=== PATIENT | male | born 2000 | race Hispanic/Latino ===

== ENCOUNTER 2022-01-12 17:08 | Emergency (ER) | payer OTHER ==
--- OUTSIDE RECORDS SUMMARY | 2022-01-12 17:11 | XMS REPORT | Continuity of Care Document ---
:2000 Author Organization [facility] t Address [address] [place] [address] Care Team Providers Name Role Phone Theo Attending Clinician Unavailable Anibal Real Admitting Clinician Unavailable Payers Payer Name Policy Type Policy Number Effective Date Expiration Date S ource Problems This patient has no known problems. Allergies, Adverse Reactions, Alerts This patient has no known allergies or adverse reactions. Medications This patient has no known medications. Procedures This patient has no known procedures. Encounters Start End Encounter Admission Attending Care Care Encounter Source Date/Time Date/Time Type Type Clinicians Facility Department ID 2021-05-13 2021-05-13 Emergency EM SUMA Venegas [facility] [id number] 10-12 [facility] 02:06:00 03:38:00 Wilfredo [id number] [facility] Results This patient has no known results.
--- NOTE | 2022-01-12 20:21 | RAD REPORT ---
EXAM DESCRIPTION: CT - Facial Bones W/ Mpr - 01/12/2022 8:03 pm CLINICAL HISTORY: Facial injury status post fall. Facial pain COMPARISON: None TECHNIQUE: Computed axial tomography of the face was obtained. Coronal and sagittal reconstruction w as performed. All CT scans are performed using dose optimization technique as appropriate and may include automated exposure control or mA/KV adjustment according to patient size. FINDINGS: A fracture is not seen. A TMJ dislocation is not noted. The globes are intact. Fluid within the sinuses is not seen. IMPRESSION: Negative for a facial fracture.
--- NOTE | 2022-01-12 20:22 | RAD REPORT ---
EXAM DESCRIPTION: CT - Head C Spine Mpr Wo Con - 01/12/2022 8:03 pm CLINICAL HISTORY: Head and neck injury status post fall. Head and neck pain COMPARISON: None. TECHNIQUE: Computed axial tomography of the head and cervical spine was obtained. Sagittal and coronal reconstruction was performed. All CT scans are performed using dose optimization technique as appropriate and may include automated exposure control or mA/KV adjustment according to patient size. FINDINGS: An intracranial bleed is not seen. The ventricles are normal in caliber. An extra-axial fl uid collection is not noted.Fluid within the visualized sinuses and mastoids is not seen A cervical fracture is not visualized. No dislocation is noted. IMPRESSION: No acute intracranial abnormality is seen. A cervical fracture is not visualized. If the patient continues to have symptoms to suggest intracra nial /spinal cord pathology then MRI would be recommended
--- NOTE | 2022-01-12 20:45 | EDPHYS ---
Physician Documentation [facility] Name: Sundeep Munguia Age: 21 yrs Sex: Male : 2000 Arrival Date: 01/12/2022 Time: 17:12 Bed 9 Private MD: ED Physician Burke Pan HPI: 01/12 20:42 This 21 yrs old Male presents to ER via Ambulatory with complaints of Head jmm Injury-Adult - Occured on 01/09, Headache, Dizziness. 20:42 The patient or guardian reports injury, pain. Onset: The symptoms/episode jmm began/occurred acutely, 3 day(s) ago. Associated signs and symptoms: Loss of consciousness:. 20:42 The complaints affect the forehead, right confucianism, right frontal area, right temporal jmm area and right side of forehead. The patient has not experienced similar symptoms in the past. Is a 21-year-old male no chronic medical conditions presents emerged part with complaints of ongoing headache, nausea after hitting his head approximately 3 days ago. Patient states that he hit his confucianism against the edge of a coffee table 3 days ago. Also complains of right-sided jaw pain.. Historical: - Allergies: 17:55 Ceclor; jb4 - PMHx: 17:55 None; jb4 - PSHx: 17:55 None; jb4 - Immunization history:: Adult Immunizations up to date. - Social history:: Smoking status: Patient denies any tobacco usage or history of. Patient uses alcohol, occasionally. ROS: 20:42 Constitutional: Negative for fever, chills, and weight loss, Cardiovascular: Negative jmm for chest pain, palpitations, and edema, Respiratory: Negative for shortness of breath, cough, wheezing, and pleuritic chest pain. 20:42 Neuro: Positive for headache. 20:42 All other systems are negative. Exam: 20:42 Constitutional: This is a well developed, well nourished patient who is awake, alert, jmm and in no acute distress. 20:42 Eyes: EOMI, no conjunctival erythema appreciated ENT: Moist Mucus Membranes Neck: Trachea midline, Supple Chest/axilla: Normal chest wall appearance and motion. Cardiovascular: Regular rate and rhythm. No edema appreciated Respiratory: Normal respirations, no respiratory distress appreciated Abdomen/GI: Non distended, soft Back: Normal ROM Skin: General appearance color normal MS/ Extremity: Moves all extremities, no obvious deformities appreciated, no edema noted to the lower extremities Neuro: Awake and alert Psych: Behavior is normal, Mood is normal, Patient is cooperative and pleasant 20:42 Head/face: Exam is negative for hematoma, raccoon eyes. Vital Signs: 17:52 BP 138 / 80; Pulse 54; Resp 16; Temp 98.3(O); Pulse Ox 100% on R/A; Weight 104.33 kg jb4 (R); Height 6 ft. 1 in. (185.42 cm) (R); Pain 3/10; 17:52 Body Mass Index 30.34 (104.33 kg, 185.42 cm) jb4 Phuc Coma Score: 17:52 Eye Response: spontaneous(4). Verbal Response: oriented(5). Motor Response: obeys [facility] commands(6). Total: 15. 20:42 Eye Response: spontaneous(4). Verbal Response: oriented(5). Motor Response: obeys [facility] commands(6). Total: 15. MDM: 18:25 Patient medically screened. [facility] 20:42 Data reviewed: vital signs, nurses notes. Counseling: I had a detailed discussion with elly the patient and/or guardian regarding: the historical points, exam findings, and any diagnostic results supporting the discharge/admit diagnosis, radiology results, the need for outpatient follow up, to return to the emergency department if symptoms worsen or persist or if there are any questions or concerns that arise at home. ED course: CT negative. Family given head injury return precautions. Patient advised follow-up PCP and otherwise given strict return precautions. Patient understood agrees plan of care. 01/12 18:08 Order name: CT Head C Spine; Complete Time: 20:26 iw 01/12 18:25 Order name: CT Facial Bones W/O Con; Complete Time: 20:26 [facility] Administered Medications: No medications were administered Disposition Summary: 01/12/22 20:45 Discharge Ordered Location: Home [facility] Condition: Stable [facility] Diagnosis - Postconcussional syndrome [facility] Followup: rebel - With: Shayan Evans MD - When: 2 - 3 days - Reason: Recheck today's complaints, Continuance of care, Re-evaluation by your physician Discharge Instructions: - Discharge Summary Sheet [facility] - Post-Concussion Syndrome [facility] Forms: - Medication Reconciliation Form jm - Thank You Letter rebel - Antibiotic Education rebel - Prescription Opioid Use [facility] Prescriptions: - Diclofenac Sodium 75 mg Oral Tablet Sustained Release - take 1 tablet by ORAL route 2 times per day; 30 tablet; Refills: 0, Product [facility] Selection Permitted - orphenadrine citrate 100 mg Oral Tablet Sustained Release - take 1 tablet by ORAL route 2 times per day As needed; 20 tablet; Refills: 0, [facility] Product Selection Permitted Signatures: Dispatcher [employer] Can Mir PA PA jmm Bryson, James, RN RN jb4 Corrections: (The following items were deleted from the chart) 17:57 17:55 Allergies: No Known Allergies; vladimir jb4
--- NOTE | 2022-01-12 20:45 | ER ---
Nurse's Notes [facility] Name: Sundeep Munguia Age: 21 yrs Sex: Male : 2000 Arrival Date: 01/12/2022 Time: 17:12 Bed 9 Private MD: Diagnosis: Postconcussional syndrome Presentation: 01/12 17:52 Chief complaint: Patient states: On Saturday I was at my friends house asleep on the jb4 couch. I fell off and hit my head on the coffee table. I didn't think anything of it at the time. Now I am dizzy, moving my head makes me feel nauseous. Coronavirus screen: At this time, the client does not indicate any symptoms associated with coronavirus-19. Ebola Screen: No symptoms or risks identified at this time. Mechanism of Injury: resulted from a fall, from couch to coffee table, aprox. 1 ft. Initial Sepsis Screen: Does the patient meet any 2 criteria? No. Patient's initial sepsis screen is negative. Does the patient have a suspected source of infection? No. Patient's initial sepsis screen is negative. Risk Assessment: Do you want to hurt yourself or someone else? Patient reports no desire to harm self or others. Onset of symptoms was January 12, 2022. Transition of care: patient was not received from another setting of care. 17:52 Method Of Arrival: Ambulatory jb4 17:52 Acuity: NURA 3 jb4 Triage Assessment: 17:55 General: Appears in no apparent distress. comfortable, Behavior is calm, cooperative, jb4 appropriate for age. Pain: Complains of pain in forehead and right baptist. Neuro: Level of Consciousness is awake, alert, obeys commands, Reports blurred vision dizziness, headache photophobia. Historical: - Allergies: 17:55 Ceclor; jb4 - PMHx: 17:55 None; jb4 - PSHx: 17:55 None; jb4 - Immunization history:: Adult Immunizations up to date. - Social history:: Smoking status: Patient denies any tobacco usage or history of. Patient uses alcohol, occasionally. Screenin:00 Abuse screen: Denies threats or abuse. Nutritional screening: No deficits noted. jb4 Tuberculosis screening: No symptoms or risk factors identified. Fall Risk None identified. Assessment: 20:00 Reassessment: Patient appears in no apparent distress at this time. Patient and/or jb4 family updated on plan of care and expected duration. Pain level reassessed. Patient is alert, oriented x 3, equal unlabored respirations, skin warm/dry/pink. 20:59 Reassessment: Patient appears in no apparent distress at this time. Patient and/or jb4 family updated on plan of care and expected duration. Pain level reassessed. Patient is alert, oriented x 3, equal unlabored respirations, skin warm/dry/pink. Vital Signs: 17:52 BP 138 / 80; Pulse 54; Resp 16; Temp 98.3(O); Pulse Ox 100% on R/A; Weight 104.33 kg jb4 (R); Height 6 ft. 1 in. (185.42 cm) (R); Pain 3/10; 17:52 Body Mass Index 30.34 (104.33 kg, 185.42 cm) jb4 Phuc Coma Score: 17:52 Eye Response: spontaneous(4). Verbal Response: oriented(5). Motor Response: obeys [facility] commands(6). Total: 15. 20:42 Eye Response: spontaneous(4). Verbal Response: oriented(5). Motor Response: obeys [facility] commands(6). Total: 15. ED Course: 17:12 Patient arrived in ED. kz 17:33 Can Olson PA is PHCP. [facility] 17:33 Burke Pan MD is Attending Physician. [facility] 17:55 Triage completed. jb4 17:55 Arm band placed on right wrist. jb4 20:00 Patient has correct armband on for positive identification. Bed in low position. Call jb4 light in reach. Side rails up X 1. 20:00 No provider procedures requiring assistance completed. Patient did not have IV access jb4 during this emergency room visit. 20:05 CT Head C Spine In Process Unspecified. EDMS 20:05 CT Facial Bones W/O Con In Process Unspecified. EDMS 20:39 Marco A Gonzalez, RN is Primary Nurse. jb4 20:44 Shayan Evans MD is Referral Physician. [facility] Administered Medications: No medications were administered Outcome: 20:45 Discharge ordered by . jmm 20:59 Discharged to home ambulatory, with family. jb4 20:59 Condition: stable 20:59 Discharge instructions given to patient, Instructed on discharge instructions, follow up and referral plans. no drinking with medication, no driving heavy equipment, medication usage, Demonstrated understanding of instructions, follow-up care, medications, Prescriptions given X 2. 21:00 Patient left the ED. jb4 Signatures: Dispatcher [employer] EDMS Can Olson PA PA jmm Bryson, James, RN RN jb4 Kari Dennis Corrections: (The following items were deleted from the chart) 17:57 17:55 Allergies: No Known Allergies; jb4 jb4 17:58 17:55 Neuro: Level of Consciousness is awake, alert, obeys commands, Reports dizziness, jb4 headache photophobia jb4
[2022-01-12 21:08] VITALS: BP 138/80; TEMP 98.3; O2SAT 100
== END 2022-01-12 21:00 | disposition home or self-care (01) ==
LOC: ER 17:08
DX: S09.90XA Unspecified injury of head, initial encounter (principal); F07.81 Postconcussional syndrome; W22.03XA Walked into furniture, initial encounter; Z88.1 Allergy status to other antibiotic agents
CPT/HCPCS: 70450; 70486; 72125; 76377; 99283